=== PATIENT | female | born 1940 | race Caucasian/White ===

== ENCOUNTER 2022-01-28 13:47 | Outpatient (CLI) | payer MEDICARE, OTHER, SELFPAY ==
--- NOTE | 2022-01-28 14:00 | CRLHL7_ITS ---
For Patients: As a result of the Century Cures Act, medical imaging exams and procedure reports are released immediately into your electronic medical record. You may view this report before your referring provider. If you have questions, please contact your health care provider. BILATERAL MAMMOGRAM WITH COMPUTER-AIDED DETECTION TECHNIQUE: CC and MLO views were obtained. These mammographic images have been obtained using full-field digital technique. These mammographic images were interpreted with the benefit of computer-aided detection. COMPARISON FILM: 01/25/19, 05/14/17, 02/03/13. FINDINGS: There are scattered areas of fibroglandular density. IMPRESSION: There is no radiographic evidence for malignancy. ASSESSMENT: BI-RADS Category 2: Benign RECOMMENDATION: Routine screening mammogram in 1 year. A lay language report of this examination will be provided to the patient. GAIL MILLER M.D. Diagnostic/Nuclear Medicine Radiologist [email or web address] Transcribed: 4:[address]/Dictated by: Gail Miller MD @ 01/29/2022 9:06:00 AM (Electronically Signed)
--- NOTE | 2022-01-28 14:30 | CRLHL7_ITS ---
For Patients: As a result of the Century Cures Act, medical imaging exams and procedure reports are released immediately into your electronic medical record. You may view this report before your referring provider. If you have questions, please contact your health care provider. DXA BONE MINERAL DENSITY STUDY Current height (in): 62. Weight (lb): 135. Menopause age: 46. Ethnicity: White. 1. Have you had a previous hip or vertebral fracture? No. 2. Have you had any fractures during your adult life which did not result from significant trauma (e.g., auto accident)? No. 3. Did either of your parents have a hip fracture? No. 4. Do you smoke? No. 5. Have you ever taken Glucocorticoids? No. 6. Do you have rheumatoid arthritis? No. 7. Do you have secondary osteoporosis? No. 8. Do you drink 3 or more alcoholic drinks per day? No. 9. Are you being treated for osteoporosis? No. 10. Have you ever taken any of the following medications: Actonel, Evista, Fosamax, Miacalcin, Reclast, Boniva, Forteo, HRT (i.e. estrogen/hormone therapy), Protelos, Prolia, Vitamin D, Calcium, other ??? please specify. ANSWER: Yes, vitamin D, calcium. 11. Do you have any of the following medical conditions: Anorexia or bulimia, asthma or emphysema, end stage renal disease, hyperparathyroidism, any seizure disorders, cancer, inflammatory bowel diseases, hysterectomy, other ??? please specify. ANSWER: Yes, cancer. 12. What was your maximum height (inches)? 63. 13. Do you perform weight bearing exercise regularly? Yes. 14. Do you regularly consume dairy products? Yes. 15. Do you drink caffeinated beverages? Yes. 16. At what age did your period start? 12. 17. Are you premenopausal? No. 18. How many full term pregnancies have you had? 4. 19. Have you ever missed your period for more than 6 months in a row (not including or menopause)? No. TECHNIQUE: Bone mineral density study was performed using the Patient Communicator. FINDINGS: The results of the study expressed as bone mineral density (BMD) are as follows: Lumbar spine L2 to L4: BMD: 0.837 g/cm2. T-score: -2.2. Z-score: 0.7. Neck Left: BMD: 0.593 g/cm2. T-score: -2.3. Z-score: 0.1. Right: BMD: 0.597 g/cm2. T-score: -2.3. Z-score: 0.2. Total Left: BMD: 0.709 g/cm2. T-score: -1.9. Z-score: 0.3. Right: BMD: 0.715 g/cm2. T-score: -1.9. Z-score: 0.3. IMPRESSION: Osteopenia. *Comparison exams done prior to 12/2019 were performed on different unit, [employer]. COMPARISON: Compared with scan of 2016, the bone mineral density has increased by 2.5 percent at the spine and increased by 4.1 percent at the hip. Compared with scan of 2010, the bone mineral density has decreased by 4.3 percent at the spine and decreased by 8.8 percent at the hip. FRAX 10-year Fracture Risk Major Osteoporotic Fracture: 17 percent Hip Fracture: 5.8 percent Reported Risk Factors: [place] () Neck BMD = 0.593, BMI = 24.7 Chris Alcazar M.D. Diagnostic/Nuclear Medicine Radiologist [email or web address] CONRADO/Dictated by: Chris Alcazar MD @ 01/29/2022 11:15:00 AM (Electronically Signed)
== END 2022-01-28 13:48 | disposition home or self-care (01) ==
LOC: MAMMO 13:49
PROVIDERS: PCP Family Medicine; Visit Provider Family Medicine
DX: Z12.31 Encounter for screening mammogram for malignant neoplasm of breast (principal); R92.2 Inconclusive mammogram; M81.0 Age-related osteoporosis without current pathological fracture; M85.89 Other specified disorders of bone density and structure, multiple sites
CPT/HCPCS: 77063; 77067; 77080

== ENCOUNTER 2023-01-14 13:55 | Outpatient (RCR) | payer MEDICARE, OTHER, SELFPAY ==
[2023-01-07 11:08] LABS: Basophils Absolute Auto 0.01 K/uL (0.00-0.30); Basophils Percent Auto 0.2 % (0.0-3.0); Eosinophils Absolute Auto 0.13 K/uL (0.00-0.50); Eosinophils Percent Auto 2.7 % (0.0-7.0); Hemoglobin* 13.5 gm/dL (12.0-16.0); Lymphocytes Percent Auto 42.9 % (20-44); Mean Corpuscular HGB Conc 32 gm/dL (32-36); Mean Corpuscular Hemoglobin 30 pg (26-34); Mean Corpuscular Volume 94 fL (80-100); Monocytes Percent Auto 9.6 % (0.0-11.0); Neutrophils Absolute Auto 2.19 K/uL (1.7-7.0); Neutrophils Percent Auto 44.6 % (42.0-72.0); Platelet Count* 195 K/uL (140-440); RDW Coefficient of Variation % 12.5 % (11.5-15.5); Red Blood Count 4.48 m/uL (4.00-5.20)
[2023-01-07 11:11] LABS: Slide Review Reflex No
[2023-01-07 11:23] LABS: Albumin* 4.4 g/dL (3.3-5.0)
[2023-01-07 11:24] LABS: Chloride* 99 mmol/L (96-114); Potassium* 4.2 mmol/L (3.6-5.1); Sodium* 137 mmol/L (135-149)
[2023-01-07 11:26] LABS: Aspartate Amino Transferase* 23 U/L (12-35); Bilirubin Total* 0.7 mg/dL (0.1-1.5); Carbon Dioxide* 32 mmol/L (20-32); Creatinine* 0.5 mg/dL (0.5-1.5); Estimated Glomerular Filt Rate 93 ml/min; Total Protein* 7.7 g/dL (6.0-8.3)
[2023-01-07 11:27] LABS: Alanine Aminotransferase* 21 U/L (4-35); Alkaline Phosphatase* 59 U/L (40-150); Blood Urea Nitrogen* 9 mg/dL (7-30); Calcium* 9.5 mg/dL (8.4-10.6); Glucose* 85 mg/dL (60-115)
[2023-01-08 16:01] LABS: Carcinoembryonic Antigen 2.9 ng/mL
== END 2023-07-06 23:59 | disposition home or self-care (01) ==
LOC: CCIC 13:55
PROVIDERS: Clinical Nurse Specialist; PCP Family Medicine; Referring Provider Family Medicine; Visit Provider Internal Medicine Hematology & Oncology
DX: C18.2 Malignant neoplasm of ascending colon (principal)
CPT/HCPCS: 36415; 80053; 82378; 85025; 99212; 99213

== ENCOUNTER 2023-02-09 07:55 | Outpatient (CLI) | payer MEDICARE, OTHER, SELFPAY | END 2023-02-09 07:56 | disposition home or self-care (01) | LOC: NFLDREF 02-10 14:24 | PROVIDERS: PCP Family Medicine; Referring Provider Family Medicine; Visit Provider Family Medicine | DX: E78.5 Hyperlipidemia, unspecified (principal); M81.0 Age-related osteoporosis without current pathological fracture; R53.83 Other fatigue | CPT/HCPCS: 80061; 82607; 84443 ==

== ENCOUNTER 2023-11-25 14:09 | Outpatient (CLI) | payer MEDICARE, OTHER, SELFPAY ==
--- OUTSIDE RECORDS SUMMARY | 2023-11-25 14:13 | XMS_ITS | Clinical Summary ---
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 Overview: Colonoscopy 11/2017 cancer, repeat in 1 years Social History Tobacco Use Types Packs/Day Years Used Date Smoking Tobacco: Never Smokeless Tobacco: Never Tobacco Cessation:Counseling Given: Yes Alcohol Use Standard Drinks/Week Comments No 0 (1 standard drink = 0.6 oz pur e alcohol) Sex and Gender Information Value Date Recorded Sex Assigned at Not on file Gender Identity Not on file Sexual Orientation Not on file Obstetrics History Last Filed Vital Signs Vital Sign Reading Time Taken Comments Blood Pressure 120/78 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 Pulse 60 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 Temperature - - Respiratory Rate - - Oxygen Saturation - - Inhaled Oxygen Concentration - - Weight 65.2 kg (143 lb 11.2 oz) 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 Height - - Body Mass Index - - Plan of Treatment Health Maintenance Due Date Last Done Comments Tdap 1950 Depression screening for age 12+ 1951 BMI (ht and wt on same day) for age 18+ 1957 Tetanus booster 1959 Zoster (shingles) series for age 50+ (1 of 2) 1989 DEXA/DXA scan for age 65+ 2004 Pneumococcal series for age 65+ (1 of 1 - PCV) 2004 COVID-19 vaccine series (3 - 2022-24 season) 2023 10/03/2020, 08/24/2020 Influenza for age 65+ 03/05/2024 Care Teams Pilot Boat Operator Relationship Specialty Start Date End Date Shefali Wolf MD [address] [facility] [place] [address] PCP - General Family Practice 12/01/17
== END 2023-11-25 14:10 | disposition home or self-care (01) ==
PROVIDERS: PCP Family Medicine; Visit Provider Family Medicine
DX: E78.2 Mixed hyperlipidemia (principal); M85.80 Other specified disorders of bone density and structure, unspecified site; R53.83 Other fatigue
CPT/HCPCS: 80053; 80061; 82306; 82607; 82728

== ENCOUNTER 2024-01-18 07:40 | Outpatient (CLI) | payer MEDICARE, OTHER, SELFPAY ==
--- OUTSIDE RECORDS SUMMARY | 2024-01-18 07:43 | XMS_ITS | Clinical Summary ---
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
--- NOTE | 2024-01-18 09:08 | W.ANESCHARGE ---
Anesthesia Charges Start Date/Time Anesthesia Start Date: 01/18/24 Anesthesia Start Time: 08:33 Stop Date/Time Anesthesia Stop Date: 01/18/24 Anesthesia Stop Time: 09:07 Summary Extremes of Age - Over 70 or under 1: MANAGER HOME HEALTHCARE
--- NOTE | 2024-01-18 09:26 | W.ANESCHARGE ---
Anesthesia Charges Start Date/Time Anesthesia Start Date: 01/18/24 Anesthesia Start Time: 08:33 Stop Date/Time Anesthesia Stop Date: 01/18/24 Anesthesia Stop Time: 09:07 Summary Extremes of Age - Over 70 or under 1: MDA
== END 2024-01-18 07:41 | disposition home or self-care (01) ==
LOC: OP CLINIC 07:41
PROVIDERS: PCP Family Medicine; Visit Provider Surgery
DX: Z85.038 Personal history of other malignant neoplasm of large intestine (principal); K57.30 Diverticulosis of large intestine without perforation or abscess without bleeding; Z98.0 Intestinal bypass and anastomosis status
CPT/HCPCS: 00812; 45378; 99100; J2704

== ENCOUNTER 2024-11-21 08:41 | Outpatient (CLI) | payer MEDICARE, OTHER, SELFPAY | END 2024-11-21 08:42 | disposition home or self-care (01) | LOC: NFLDREF 11-27 17:39 | PROVIDERS: PCP Family Medicine; Referring Provider Family Medicine; Visit Provider Family Medicine | DX: E78.2 Mixed hyperlipidemia (principal); M85.89 Other specified disorders of bone density and structure, multiple sites; M81.0 Age-related osteoporosis without current pathological fracture; R53.83 Other fatigue; C18.2 Malignant neoplasm of ascending colon; Z78.9 Other specified health status; Z79.899 Other long term (current) drug therapy | CPT/HCPCS: 80053; 80061; 82306; 82607; 82728 ==

== ENCOUNTER 2025-04-16 07:06 | Outpatient (CLI) | payer MEDICARE, OTHER, SELFPAY ==
--- NOTE | 2025-04-16 07:15 | CRLHL7_ITS ---
For Patients: As a result of the Century Cures Act, medical imaging exams and procedure reports are released immediately into your electronic medical record. You may view this report before your referring provider. If you have questions, please contact your health care provider. Indication: Scoliosis. Back pain. Technique: Multiplanar, multisequence MRI of the lumbar spine was performed without intravenous contrast. Comparison: Lumbar spine radiographs 01/30/2025. Findings: There are 5 lumbar type vertebral segments identified. The vertebral body heights are maintained without evidence of fracture. There is no discrete T1 hypointense marrow infiltrating process. The conus medullaris terminates at T12-L1, normal. Cauda equina appears unremarkable. T12-L1: Trace degenerative retrolisthesis. No spinal canal or neural foraminal narrowing. L1-2: Trace degenerative retrolisthesis. No spinal canal narrowing. Mild neural foraminal narrowing. Mild facet arthropathy. L2-3: Disc degeneration. Disc bulge and facet arthropathy results in mild spinal canal narrowing. Mild neural foraminal narrowing. Mild facet arthropathy. L3-4: Disc degeneration. Disc bulge combined with ligamentum flavum thickening results in moderate left lateral recess narrowing with overall [id number] spinal canal narrowing. Mild left neural foraminal narrowing. Moderate facet arthropathy. L4-5: Disc degeneration. Disc bulge results in mild spinal canal narrowing. Mild neural foraminal narrowing. Moderate facet arthropathy. L5-S1: No spinal canal or neural foraminal stenosis. Mild facet arthropathy. Mild sacroiliac joint osteoarthritis. Small left renal cysts. Impression: 1. At L3-4, moderate left lateral recess stenosis. 2. Mild spondylosis at the remaining lumbar levels. 3. [id number] multilevel facet arthropathy. Dictated by Osvaldo Guerrero MD @ 04/16/2025 12:46:49 PM (Electronically Signed)
== END 2025-04-16 07:07 | disposition home or self-care (01) ==
LOC: MRI 07:06
PROVIDERS: PCP Family Medicine; Visit Provider Family Medicine
DX: M41.9 Scoliosis, unspecified (principal); M48.061 Spinal stenosis, lumbar region without neurogenic claudication; M47.896 Other spondylosis, lumbar region; N28.1 Cyst of kidney, acquired; M54.50 Low back pain, unspecified
CPT/HCPCS: 72148